=== PATIENT | male | born 1960 | race Caucasian/White ===

== ENCOUNTER 2020-10-23 16:37 | Emergency (ER) | payer OTHER, SELFPAY ==
--- NOTE | ~2020-10-23 | XR_ITS ---
EXAMINATION: LEFT HAND CLINICAL INFORMATION: Hand pain COMPARISON: None TECHNIQUE: 3 views left hand FINDINGS: Degenerative changes are present screws of the at the trapezium-scaphoid joint as well as the scaphoid-trapezoid joint with sclerosis, joint space narrowing narrowing and subchondral cyst formation. No acute fracture is seen. The remainder of the visualized hand and wrist is unremarkable. XR/XR hand wrist LT IMPRESSION: Localized moderate changes in the wrist as described above
[2020-10-23 16:50] VITALS: BP 104/64; PULSE 91; RESP 18; TEMP 37.1; O2SAT 97; BMI 25.8
--- NOTE | 2020-10-23 19:17 | ED.EXTPRO ---
HPI - Extremity Problem General Chief complaint: Extremity Problem Stated complaint: left arm pain Time Seen by Provider: 10/23/20 18:42 Source: patient Mode of arrival: ambulatory Limitations: no limitations History of Present Illness HPI Narrative: Patient presents to ED for left hand/left wrist pain described as sharp stabbing and tingling. Patient also states slight swelling at the wrist. Patient has known history of gout. Patient denies any recent trauma to the hand. Patient was also having left shoulder and posterior neck pain she states is chronic due to pain syndrome that resolved 4 days ago.. Patient came to ED cause of his left wrist and left hand pain. Patient denies ever having any chest pain or shortness of breath Related Data Previous Rx's Medication Instructions Recorded indomethacin 25 mg PO BID 7 Days #14 cap 10/23/20 prednisone 40 mg PO DAILY #10 tab 10/23/20 Allergies Allergy/AdvReac Type Severity Reaction Status Date / Time From TORADOL AdvReac Unknown NAUSEA & Uncoded 10/23/20 16:49 VOMITING Review of Systems Review of Systems: Yes all other systems are reviewed and are negative Constitutional: Constitutional: Reports as per HPI and Reports no additional constitutional complaints Eyes: Eyes: Reports as per HPI and Reports no additional eye complaints ENT: Reports system reviewed and no additional complaints, except as documented and Reports as per HPI Cardiovascular: Cardiovascular: Reports as per HPI and Reports no additional cardiovascular complaints Respiratory: Respiratory: Reports as per HPI and Reports no additional respiratory complaints Gastrointestinal: Gastrointestinal: Reports as per HPI and Reports no additional gastrointestinal complaints Genitourinary: Genitourinary: Reports no additional male genitourinary complaints and Reports as per HPI Musculoskeletal: Musculoskeletal: Reports no additional musculoskeletal complaints, Reports as per HPI and Reports arthralgias (Left hand/wrist) Neurologic: Reports system reviewed and no additional complaints, except as documented and Reports as per HPI Psychiatric: Psychiatric: Reports no additional psychiatric complaints and Reports as per HPI PMF Social History Social History Smoking Status: Former smoker Use of substances other than those prescribed or required for medical reasons: No Any prior treatment program specific to substance use: No Advance Directives: No Advance Directives Information Provided: Yes Physical Exam Vital Signs: Vital Signs: Last Vital Signs Temp 98.7 F 10/23/20 16:50 Pulse 91 10/23/20 16:50 Resp 18 10/23/20 16:50 BP 104/64 10/23/20 16:50 Pulse Ox 97 10/23/20 16:50 Body Mass Index 25.8 Const: General: cooperative, healthy appearing, comfortable, no acute distress, well developed, alert and awake Orientation/consciousness: patient oriented x3 HENMT: Head: Yes normal to inspection, Yes No palpable skull fracture present, Yes normocephalic, Yes atraumatic and Yes abrasion Eyes: General: appearance normal, both eyes and all related structures Neck: Neck: Yes normal visual inspection, Yes full ROM, Yes no lymphadenopathy, Yes no meningeal signs, Yes trachea midline, Yes supple and No tender Chest: Chest palpation & inspection: normal inspection of the chest and normal palpation of entire chest wall Resp: Effort & Inspection: normal respiratory effort and able to speak in complete sentences Auscultation: clear to auscultation bilaterally Cardio: Jugular venous distension: no JVD Heart sounds: S1 normal heart sound present and S2 normal heart sound present GI: Inspection: Yes normal to inspection Palpation (GI): Soft to palpation, not firm, nontender, no guarding and not rigid : General: No CVA tenderness and Yes no CVA tenderness Back/Spine/Pelvis: Back: no CVA tenderness, No CVA tenderness and No back tenderness Skin: General skin exam: no rashes or lesions noted and elasticity normal Neuro: General: patient oriented x3, no meningeal signs and CN's II-XI intact bilaterally Cranial nerves: Yes CN's II-XII intact bilaterally Extrem: Other: Left hand/wrist: Positive for swelling at the wrist with tenderness on palpation. Left hand/wrist/rest of upper extremity negative for any redness, warmth, ecchymosis, palpable mass, or coolness. Pulses intact. Neuro exam intact. Other extremities are normal. General: Yes normal to inspection and Yes full ROM Psych: Appearance: grossly normal, well kempt and not disheveled Course Course Course Narrative: Patient will be sent for left hand x-ray. Reevaluation(s) Reevaluation #1: Left hand x-ray shows severe arthritis with subchondral cyst. Left hand/wrist negative for any erythema or warmth. Not suspecting any cellulitis or septic joint. Not suspecting cardiac activity. Patient states he is not having any left arm, left shoulder, or posterior neck pain today. Patient last had the symptoms 4 days ago. Patient is on many pain medications due to chronic pain syndrome. Patient is on oxycodone andf muscle relaxers. Patient will be discharged with NSAIDs and prednisone. Patient referred to follow up with Orthopedic. Vital are stable. No fever or chills. Time: 19:20 MDM - Extremity (Nontraumatic) MDM Narrative Medical decision making narrative: Left hand/wrist osteoarthritis Discharge Plan Discharge Clinical Impression: Osteoarthritis, Subchondral bone cyst Patient Disposition: Home, Self-Care Instructions: Osteoarthritis (ED) Additional Instructions: Return to the ED for any redness, warmth, development of red streaks, fever, chills, increased swelling of upper extremities, chest pain, shortness of breath, weakness, dizziness, or any other concerning symptoms. Prescriptions: New indomethacin 25 mg capsule 25 mg PO BID 7 Days Qty: 14 RF: 0 prednisone 20 mg tablet 40 mg PO DAILY Qty: 10 RF: 0 Referrals: Santy Chauhan MD [Physician] - 2 days (Severe left wrist osteoarthritis with subchondral cyst) Interventions: ED Discharge Assessment Last Done: 10/23/20 19:37 Discharge Date/Time: 10/23/20 20:12 Print Language: [place]
== END 2020-10-23 20:12 | disposition home or self-care (01) ==
PROVIDERS: Emergency Provider Emergency Medicine; PCP Hospitalist
DX: M19.032 Primary osteoarthritis, left wrist (principal); M85.642 Other cyst of bone, left hand; Z79.899 Other long term (current) drug therapy; Z87.891 Personal history of nicotine dependence
CPT/HCPCS: 73110; 73130; 99283; 99284